=== PATIENT | female | born 1950 | race Caucasian/White ===

== ENCOUNTER → 2018-07-16 | Outpatient (CLI) | payer MEDICARE | END | disposition home or self-care (01) | LOC: SHCH 14:19 | PROVIDERS: ATTEND Internal Medicine Cardiovascular Disease | DX: I20.9 Angina pectoris, unspecified (principal) | CPT/HCPCS: 93306 ==

== ENCOUNTER → 2018-07-20 | Outpatient (CLI) | payer MEDICARE ==
[~2018-07-20] VITALS: Ht 157.5 cm; Wt 79.4 kg
[~2018-07-20] MED LIST: REGADENOSON 0.4 MG/5 ML PF SYG IVP SCH
== END | disposition home or self-care (01) ==
LOC: SHCH 08:18 → EDUNIT# 08:30
PROVIDERS: ATTEND Internal Medicine Cardiovascular Disease
DX: I20.9 Angina pectoris, unspecified (principal)
CPT/HCPCS: 78452; 93017; 96374; A9500 ×2; J2785 ×2

== ENCOUNTER 2019-04-04 06:00 | Day surgery (SDC) | payer MEDICARE ==
[2019-04-02 09:48] VITALS: BP 145/67
[2019-04-02 10:33] LABS: HEMATOCRIT 39.7 % (36-48); LYMPHOCYTES % (AUTO) 29.3 % (21.0-51.0); MEAN CORPUSCULAR HEMOGLOBIN 28.8 pg (27.0-33.0); MEAN CORPUSCULAR HGB CONC 31.7 g/dL (32.0-36.0); MEAN CORPUSCULAR VOLUME 90.6 fL (79-99); NEUTROPHILS % (AUTO) 63.4 % (40.0-77.0); PLATELET COUNT (AUTO) 285 K/uL (130-400); RED BLOOD CELL COUNT(AUTO) 4.38 MIL/uL (4.00-5.50); WHITE BLOOD COUNT (AUTO) 6.1 K/uL (4.8-10.8)
[2019-04-02 10:42] LABS: CREATININE 0.8 mg/dL (0.5-1.5)
[2019-04-02 10:43] LABS: APPEARANCE,URINE Clear (CLEAR); BILIRUBIN,URINE Negative (NEGATIVE); COLOR,URINE Yellow (YELLOW); GLUCOSE, URINE (UA) Negative (NEGATIVE); KETONES,URINE Negative (NEGATIVE); LEUKOCYTE ESTERASE ,URINE Negative (NEGATIVE); NITRATE,URINE Negative (NEGATIVE); OCCULT BLOOD,URINE Negative (NEGATIVE); PROTEIN,URINE Negative (NEGATIVE); UROBILINOGEN,URINE 0.2 mg/dL (0.2-1.0)
[2019-04-02 10:47] LABS: INR 0.89 (0.85-1.15); PARTIAL THROMBOPLASTIN TIME 24.5 SEC (26.3-35.5); PROTHROMBIN TIME 9.4 SEC (9.6-11.6)
[2019-04-04] VITALS (10 sets, daily range): BP systolic 141–156; BP diastolic 62–84
[~2019-04-04] VITALS: Ht 160 cm; Wt 76.1 kg
[~2019-04-04 06:00] MED LIST changes: +ATOR20TA65 PO; +CBD OIL SL; +CHOL200026 PO; +DOCU-116 PO; +FLUTICASONE NASAL; +MELA3TAB66 PO; +NITR0.4T50 SL; +PREN-154 PO; -REGADENOSON 0.4 MG/5 ML PF SYG IVP SCH; +SERT100T12 PO; +SODIUM CHLORIDE 0.9% 500ML 500 ML IV SCH; +TROS60CA4 PO; +TURM500C9 PO; +[UNRECOGNIZED DRUG - OTHER] PO; +[UNRECOGNIZED DRUG - OTHER] PO; +[UNRECOGNIZED DRUG - OTHER] PUFF; +[UNRECOGNIZED DRUG - OTHER] PUFF; +super b complex PO
--- NOTE | 2019-04-04 06:15 | NUR ---
PRE-PROCEDURE RECEIVED TO DAY 14 VIA AMBULATING FOR SCHEDULED LHC. AWAKE IN NO ACUTE DISTRESS. PER PT HAS INTERMITTENT CHEST PAIN 3-5/10 ON/OFF THROUGHOUT DAY THAT IMPROVES WITH DEEP BREATHING. DENIES SOA. CONNECTED TO CONTINUOUS CARDIOPULMONARY MONITORING. SIDE RAILS UP X2, BED IN LOWEST POSITION, AND CALL LIGHT W/IN REACH.
[2019-04-04] MEDS ORDERED: METHYLPREDNISOLONE SOD SUCC 125MG/2ML VIAL ONE ×2 (06:20→07:47)
[2019-04-04] MEDS ORDERED: SODIUM CHLORIDE 0.9% 1000ML 1,000 ML IV ONE (06:20)
--- NOTE | 2019-04-04 07:20 | NUR ---
PROCEDURE TRANSFERRED TO HOST AND HOSTESS VIA BED BY CARIE PARRA RN. AWAKE IN NO ACUTE DISTRESS.
[2019-04-04] MEDS ORDERED: HEPARIN SODIUM 1000UNIT/ML 10ML VIAL ONE (07:26)
[2019-04-04] MEDS ORDERED: IOHEXOL-350 50ML VIAL IV ONE (07:27)
[2019-04-04] MEDS ORDERED: LIDOCAINE HCL 2% 20ML ONE (07:27)
[2019-04-04] MEDS ORDERED: MIDAZOLAM HCL 1 MG/ML 2ML VIAL ONE (07:27)
[2019-04-04] MEDS ORDERED: NITROGLYCERIN 5 MG/ML 10 ML VIAL IV ONE (07:27)
[2019-04-04] MEDS ORDERED: FENTANYL CITRATE PF 50 MCG/1 ML 2ML VIAL ONE (07:27)
[2019-04-04] MEDS ORDERED: IOHEXOL 350 MG/ML 100ML INFUS..BTL IV ONE (07:27)
[2019-04-04] MEDS ORDERED: BIVALIRUDIN 250 MG/VIAL IV ONE (07:38)
[2019-04-04] MEDS ORDERED: SODIUM CHLORIDE 0.9% 1000ML 1,000 ML IV SCH (08:12)
[2019-04-04] MEDS ORDERED: NITROGLYCERIN 0.4 MG SL TAB SL PRN (08:15)
[2019-04-04] MEDS ORDERED: GLUCAGON 1MG KIT 1 MG ML IM PRN (08:15)
[2019-04-04] MEDS ORDERED: DEXTROSE 50%-WATER 50 ML DISP.SYRIN IV PRN (08:15)
[2019-04-04] MEDS ORDERED: METOPROLOL TARTRATE 1 MG/ML 5ML VIAL IV PRN (08:15)
[2019-04-04] MEDS ORDERED: HYDRALAZINE HCL 20 MG/ML VIAL IV PRN (08:15)
[2019-04-04] MEDS ORDERED: ACETAMINOPHEN-CODEINE 300/30MG TAB PO PRN (08:15)
--- NOTE | 2019-04-04 08:42 | NUR ---
POST-PROCEDURE RECEIVED FROM PLUMBING INSTALLER VIA BED S/P [facility]. AWAKE IN ACUTE DISTRESS. CONNECTED TO CONTINUOUS CARDIOPULMONARY MONITORING. RIGHT FEMORAL CATH SITE WITH MYNX CLEAN, DRY, AND INTACT; SITE SOFT, NON-TENDER. EDUCATED PT TO KEEP RIGHT LEG STRAIGHT AND HEAD FLAT X2 HOURS. PT VERBALIZED UNDERSTANDING. SIDE RAILS UP X2, BED IN LOWEST POSITION, AND CALL LIGHT W/IN REACH.
--- NOTE | 2019-04-04 09:18 | NUR ---
ACTIVITY HOB ELEVATE TO 20 DEGREES. RIGHT FEMORAL CATH SITE W/ MYNX CD&I, SITE SOFT, NON-TENDER.
--- NOTE | 2019-04-04 10:45 | NUR ---
ACTIVITY UP TO RR WITH MINIMAL ASSIST OF 1. GAIT STEADY. CATH SITE TO RIGHT FEMORAL WITH MYNX CD&I; SITE SOFT, NON-TENDER.
--- NOTE | 2019-04-04 11:30 | NUR ---
DIET ATE 50% OF LUNCH.
--- NOTE | 2019-04-04 13:10 | NUR ---
DISCHARGE EDUCATION DAY PT DISCHARGE INSTRUCTION SHEET, MED REC, AND PT SUMMARY REVIEWED WITH PT AND PTS FRIEND (PER PTS REQUEST). EDUCATED IF PUNCTURE SITE STARTS BLEEDING, APPLY DIRECT PRESSURE OVER THE AREA AND RETURN TO ER. PT VERBALIZED UNDERSTANDING. OPPORTUNITY GIVEN TO ASK QUESTIONS. QUESTIONS ADDRESSED.
--- NOTE | 2019-04-04 13:25 | NUR ---
DISCHARGE DISCHARGED VIA W/C. AWAKE IN NO ACUTE DISTRESS.
== END 2019-04-04 13:25 | disposition home or self-care (01) ==
LOC: DAH 06:00
PROVIDERS: ATTEND Internal Medicine Cardiovascular Disease
DX: I25.110 Atherosclerotic heart disease of native coronary artery with unstable angina pectoris (principal); I10 Essential (primary) hypertension; J45.909 Unspecified asthma, uncomplicated; K21.9 Gastro-esophageal reflux disease without esophagitis; F32.9 Major depressive disorder, single episode, unspecified; F17.210 Nicotine dependence, cigarettes, uncomplicated; E78.2 Mixed hyperlipidemia; M19.90 Unspecified osteoarthritis, unspecified site; Z98.890 Other specified postprocedural states; Z90.710 Acquired absence of both cervix and uterus; Z79.01 Long term (current) use of anticoagulants; Z90.49 Acquired absence of other specified parts of digestive tract; Z88.0 Allergy status to penicillin
CPT/HCPCS: 36415; 71045; 80048; 81003; 85025; 85610; 85730; 93005; 93458; A4215; A4216; A4221; A4222; A4223 ×3; A4606; A4663; C1760; C1894 ×3; J1644; J2250; J2930 ×2; J3010; J3490 ×2; J7030; Q9965; Q9967 ×2; 99156; 99157; J0583

== ENCOUNTER 2021-03-08 20:10 | Observation (INO) | payer MEDICARE ==
[~2021-03-08] VITALS: Ht 157.5 cm; Wt 70.2 kg
[~2021-03-08 20:10] MED LIST changes: +MELA3TAB41 PO; -MELA3TAB66 PO; +SERT-440 PO; -SERT100T12 PO; -SODIUM CHLORIDE 0.9% 500ML 500 ML IV SCH
[2021-03-08] MEDS ORDERED: ASPIRIN 325MG TAB PO ONE (20:30)
[2021-03-08] MEDS ORDERED: NITROGLYCERIN 1GM OINT 1 INCH/1GM TD ONE (20:30)
[2021-03-08 20:34] LABS: BASOPHILS % (AUTO) 0.1 % (0.0-5.0); EOSINOPHILS % (AUTO) 2.1 % (0.0-8.0); HEMATOCRIT 38.3 % (36-48); LYMPHOCYTES % (AUTO) 34.6 % (21.0-51.0); MEAN CORPUSCULAR HEMOGLOBIN 29.1 pg (27.0-33.0); MEAN CORPUSCULAR HGB CONC 33.2 g/dL (32.0-36.0); MEAN CORPUSCULAR VOLUME 87.8 fL (79-99); MONOCYTES % (AUTO) 8.1 % (3.0-13.0); NEUTROPHILS % (AUTO) 54.8 % (40.0-77.0); PLATELET COUNT (AUTO) 274 K/uL (130-400); RED BLOOD CELL COUNT(AUTO) 4.36 MIL/uL (4.00-5.50); RED CELL DISTRIBUTION WIDTH 14.5 % (11.0-15.5)
[2021-03-08 20:54] LABS: CREATININE 0.9 mg/dL (0.5-1.5); POTASSIUM 3.5 mmol/L (3.5-5.1)
[2021-03-08 21:03] LABS: ALBUMIN 3.7 g/dL (3.5-5.0); BILIRUBIN,TOTAL 0.4 mg/dL (0.2-1.0); TOTAL PROTEIN, SERUM 7.1 g/dL (6.0-8.3)
[2021-03-08] MEDS ORDERED: NITROGLYCERIN 0.4 MG SL TAB SL PRN (22:30)
[2021-03-08] MEDS ORDERED: ACETAMINOPHEN 325 MG TAB PO PRN ×2 (22:30)
[2021-03-08] MEDS ORDERED: ONDANSETRON 4MG INJ IV PRN (22:30)
[2021-03-09 00:05] LABS: APPEARANCE,URINE Clear (CLEAR); BILIRUBIN,URINE Negative (NEGATIVE); GLUCOSE, URINE (UA) Negative (NEGATIVE); KETONES,URINE Negative (NEGATIVE); LEUKOCYTE ESTERASE ,URINE Trace (NEGATIVE); NITRATE,URINE Negative (NEGATIVE); OCCULT BLOOD,URINE Negative (NEGATIVE); PROTEIN,URINE Negative (NEGATIVE); UROBILINOGEN,URINE 0.2 mg/dL (0.2-1.0)
[2021-03-09 00:08] LABS: COLOR,URINE YELLOW (YELLOW)
[2021-03-09 00:25] LABS: BACTERIA,URINE Rare /HPF (None Seen); RBC,URINE None Seen /HPF (0-1); WBC,URINE 0-1 /HPF (0-1)
[2021-03-09 00:58] LABS: AMPHET/METH SCREEN,URINE NEGATIVE (NEGATIVE); BARBITURATE SCREEN, URINE NEGATIVE (NEGATIVE); BENZODIAZEPINES SCREEN,URINE NEGATIVE (NEGATIVE); CANNABINOID SCREEN,URINE POSITIVE (NEGATIVE); COCAINE SCREEN,URINE NEGATIVE (NEGATIVE); OPIATE SCREEN,URINE NEGATIVE (NEGATIVE); PHENCYCLIDINE SCREEN,URINE NEGATIVE (NEGATIVE)
[2021-03-09] MEDS ORDERED: IPRATROPIUM/ALBUTEROL SULFATE 3 ML SOLUTION IH PRN (02:00)
[2021-03-09 04:34] LABS: HEMATOCRIT 36.5 % (36-48); LYMPHOCYTES % (AUTO) 44.2 % (21.0-51.0); MEAN CORPUSCULAR HEMOGLOBIN 29.6 pg (27.0-33.0); MEAN CORPUSCULAR HGB CONC 33.2 g/dL (32.0-36.0); MEAN CORPUSCULAR VOLUME 89.2 fL (79-99); MONOCYTES % (AUTO) 8.6 % (3.0-13.0); NEUTROPHILS % (AUTO) 46.8 % (40.0-77.0); PLATELET COUNT (AUTO) 221 K/uL (130-400); RED BLOOD CELL COUNT(AUTO) 4.09 MIL/uL (4.00-5.50); RED CELL DISTRIBUTION WIDTH 14.6 % (11.0-15.5); WHITE BLOOD COUNT (AUTO) 5.3 K/uL (4.8-10.8)
[2021-03-09 04:35] VITALS: BP 145/69
[2021-03-09 05:10] LABS: ALBUMIN 3.3 g/dL (3.5-5.0); BILIRUBIN,TOTAL 0.4 mg/dL (0.2-1.0); CREATININE 0.8 mg/dL (0.5-1.5); MAGNESIUM 2.1 mg/dL (1.80-2.40); POTASSIUM 3.5 mmol/L (3.5-5.1); TOTAL PROTEIN, SERUM 6.4 g/dL (6.0-8.3)
[2021-03-09 08:00] VITALS: BP 128/75
[2021-03-09] MEDS ORDERED: FAMOTIDINE 20MG TAB PO SCH (09:00)
[2021-03-09] MEDS ORDERED: ENOXAPARIN SODIUM 30 MG/0.3 ML SQ SCH (09:00)
[2021-03-09] MEDS ORDERED: METOPROLOL TARTRATE 25 MG TAB PO SCH (09:00)
[2021-03-09] MEDS ORDERED: ATOR20TA65 PO (11:09)
[2021-03-09] MEDS ORDERED: GABA300S PO (11:09)
[2021-03-09] MEDS ORDERED: ISOS30TA92 PO (11:09)
[2021-03-09 12:00] VITALS: BP 124/65
== END 2021-03-09 16:45 | disposition home or self-care (01) ==
LOC: EDH 20:10 → EDHIP 22:19 → 3DH 03-09 03:44
PROVIDERS: ADMIT Internal Medicine; ATTEND Internal Medicine
DX: R07.89 Other chest pain (principal); Z20.822 Contact with and (suspected) exposure to COVID-19; I25.118 Atherosclerotic heart disease of native coronary artery with other forms of angina pectoris; E78.5 Hyperlipidemia, unspecified; K21.9 Gastro-esophageal reflux disease without esophagitis; J45.909 Unspecified asthma, uncomplicated; E78.00 Pure hypercholesterolemia, unspecified; I10 Essential (primary) hypertension; E66.9 Obesity, unspecified; M19.90 Unspecified osteoarthritis, unspecified site; F32.9 Major depressive disorder, single episode, unspecified; F12.90 Cannabis use, unspecified, uncomplicated; Z88.0 Allergy status to penicillin; Z79.899 Other long term (current) drug therapy; Z90.711 Acquired absence of uterus with remaining cervical stump; Z68.28 Body mass index [BMI] 28.0-28.9, adult
CPT/HCPCS: 36415 ×2; 71045; 80053 ×2; 80061; 80305; 81001; 82550 ×3; 83735 ×2; 83874 ×3; 83880; 84484 ×4; 85025 ×2; 86140; 87635; 93005 ×2; 96372; 99283; G0378 ×19; J1650

== ENCOUNTER 2021-04-27 15:37 | Observation (INO) | payer MEDICARE ==
[~2021-04-27] VITALS: Ht 157.5 cm; Wt 73.8 kg
[~2021-04-27 15:37] MED LIST changes: -CBD OIL SL; -CHOL200026 PO; +GABA300S PO; +ISOS30TA92 PO; -MELA3TAB41 PO; -NITR0.4T50 SL; -PREN-154 PO; -TROS60CA4 PO; -TURM500C9 PO; -[UNRECOGNIZED DRUG - OTHER] PO; -[UNRECOGNIZED DRUG - OTHER] PO; -super b complex PO
[2021-04-27 17:09] LABS: HEMATOCRIT 42.3 % (36-48); MEAN CORPUSCULAR HEMOGLOBIN 29.1 pg (27.0-33.0); MEAN CORPUSCULAR HGB CONC 32.6 g/dL (32.0-36.0); MEAN CORPUSCULAR VOLUME 89.2 fL (79-99); RED BLOOD CELL COUNT(AUTO) 4.74 MIL/uL (4.00-5.50); RED CELL DISTRIBUTION WIDTH 13.5 % (11.0-15.5); WHITE BLOOD COUNT (AUTO) 7.1 K/uL (4.8-10.8)
[2021-04-27 17:22] LABS: CREATININE 0.8 mg/dL (0.5-1.5)
[2021-04-27 17:34] LABS: BILIRUBIN,TOTAL 0.6 mg/dL (0.2-1.0); TOTAL PROTEIN, SERUM 7.1 g/dL (6.0-8.3)
[2021-04-27 20:48] LABS: APPEARANCE,URINE Clear (CLEAR); BILIRUBIN,URINE Negative (NEGATIVE); COLOR,URINE Yellow (YELLOW); GLUCOSE, URINE (UA) Negative (NEGATIVE); KETONES,URINE 15 mg/dL (NEGATIVE); LEUKOCYTE ESTERASE ,URINE Moderate (NEGATIVE); NITRATE,URINE Positive (NEGATIVE); OCCULT BLOOD,URINE Negative (NEGATIVE); PROTEIN,URINE Negative (NEGATIVE)
[2021-04-27 20:59] LABS: BACTERIA,URINE Moderate /HPF (None Seen); RBC,URINE None Seen /HPF (0-1); SQUAMOUS EPITHELIAL CELL,UR 0-2 /HPF (0-2)
[2021-04-27] MEDS ORDERED: ACETAMINOPHEN 325 MG TAB PO PRN ×2 (21:30)
[2021-04-27] MEDS ORDERED: ASPIRIN 81MG CHEW TAB PO ONE (21:30)
[2021-04-27] MEDS ORDERED: NITROGLYCERIN 0.4 MG SL TAB SL PRN (21:30)
[2021-04-27] MEDS ORDERED: CEFTRIAXONE 1G VIAL IVP ONE (21:30)
[2021-04-27] MEDS: LEVOFLOXACIN 750 MG/D5W 150 ML 150 ML IV SCH (21:59)
[2021-04-27] MEDS: LACTATED RINGERS 1000ML 1,000 ML IV SCH (21:59)
[2021-04-27] MEDS ORDERED: ZOSYN 3.375GM +NS 50ML IV SCH (22:00)
[2021-04-27] MEDS ORDERED: 0.9%NACL 50ML 50 ML IV SCH (22:00)
[2021-04-27 22:45] VITALS: BP 144/67
[2021-04-27 22:48] VITALS: BP 140/62
[2021-04-27 22:51] VITALS: BP 166/52
[2021-04-28] VITALS (9 sets, daily range): BP systolic 126–156; BP diastolic 64–89
[2021-04-28] MEDS ORDERED: ALBUTEROL INHALER 90MCG/INH IH PRN
[2021-04-28 05:32] LABS: HEMATOCRIT 39.3 % (36-48); LYMPHOCYTES % (AUTO) 39.3 % (21.0-51.0); MEAN CORPUSCULAR HEMOGLOBIN 28.5 pg (27.0-33.0); MEAN CORPUSCULAR HGB CONC 31.8 g/dL (32.0-36.0); MEAN CORPUSCULAR VOLUME 89.7 fL (79-99); MONOCYTES % (AUTO) 9.4 % (3.0-13.0); NEUTROPHILS % (AUTO) 50.9 % (40.0-77.0); PLATELET COUNT (AUTO) 253 K/uL (130-400); RED BLOOD CELL COUNT(AUTO) 4.38 MIL/uL (4.00-5.50); RED CELL DISTRIBUTION WIDTH 13.5 % (11.0-15.5); WHITE BLOOD COUNT (AUTO) 5.2 K/uL (4.8-10.8)
[2021-04-28 05:57] LABS: CREATININE 0.9 mg/dL (0.5-1.5); MAGNESIUM 1.8 mg/dL (1.80-2.40); PHOSPHORUS 4.3 mg/dL (2.5-4.9); POTASSIUM 3.8 mmol/L (3.5-5.1)
[2021-04-28] MEDS: LACTATED RINGERS 1000ML 1,000 ML IV SCH ×2 (06:39→23:54)
[2021-04-28] MEDS ORDERED: LEVOFLOXACIN 750 MG/D5W 150 ML 150 ML IV SCH (09:00)
[2021-04-28] MEDS: FAMOTIDINE 20MG TAB PO SCH ×2 (09:06→19:45)
[2021-04-28] MEDS: ASPIRIN 81MG CHEW TAB PO SCH (09:06)
[2021-04-28] MEDS: ENOXAPARIN SODIUM 40 MG/0.4 ML SYRINGE SQ SCH (09:07)
[2021-04-28] MEDS ORDERED: MAGNESIUM 2GM PREMIX 50ML 50 ML IV PRN (18:30)
[2021-04-28] MEDS ORDERED: ISOS30TA92 PO (19:43)
[2021-04-28] MEDS ORDERED: GABA600T PO (19:43)
[2021-04-28] MEDS ORDERED: TROS60CA4 PO (19:43)
[2021-04-28] MEDS ORDERED: BUPROPION PO (19:43)
[2021-04-28] MEDS: LEVOFLOXACIN 750 MG/D5W 150 ML 150 ML IV SCH (19:44)
[2021-04-28] MEDS ORDERED: NITR0.3T SL (19:54)
[2021-04-28] MEDS ORDERED: LACTATED RINGERS 1000ML 1,000 ML IV ONE (23:53)
[2021-04-29] VITALS: BP 127/70
[2021-04-29 04:00] VITALS: BP 130/69
[2021-04-29 05:17] LABS: EOSINOPHILS % (AUTO) 2.2 % (0.0-8.0); HEMATOCRIT 42.1 % (36-48); LYMPHOCYTES % (AUTO) 33.3 % (21.0-51.0); MEAN CORPUSCULAR HEMOGLOBIN 28.8 pg (27.0-33.0); MEAN CORPUSCULAR HGB CONC 32.1 g/dL (32.0-36.0); MONOCYTES % (AUTO) 11.2 % (3.0-13.0); NEUTROPHILS % (AUTO) 52.8 % (40.0-77.0); PLATELET COUNT (AUTO) 256 K/uL (130-400); RED BLOOD CELL COUNT(AUTO) 4.68 MIL/uL (4.00-5.50); RED CELL DISTRIBUTION WIDTH 13.6 % (11.0-15.5); WHITE BLOOD COUNT (AUTO) 5.8 K/uL (4.8-10.8)
[2021-04-29 05:26] LABS: CREATININE 1.1 mg/dL (0.5-1.5); MAGNESIUM 2.5 mg/dL (1.80-2.40); POTASSIUM 4.2 mmol/L (3.5-5.1)
[2021-04-29 07:51] VITALS: BP 125/53
[2021-04-29] MEDS: ASPIRIN 81MG CHEW TAB PO SCH (09:31)
[2021-04-29] MEDS: FAMOTIDINE 20MG TAB PO SCH (09:31)
[2021-04-29] MEDS: ENOXAPARIN SODIUM 40 MG/0.4 ML SYRINGE SQ SCH (09:32)
[2021-04-29 12:00] VITALS: BP 114/59
[2021-04-29 12:05] VITALS: BP 139/68
[2021-04-29 12:10] VITALS: BP 131/83
[2021-04-29] MEDS ORDERED: NITR50CA PO (13:07)
== END 2021-04-29 16:30 | disposition home or self-care (01) ==
LOC: EDH 15:37 → EDHIP 21:12 → 3CH 22:17
PROVIDERS: ADMIT Hospitalist; ATTEND Hospitalist
DX: N39.0 Urinary tract infection, site not specified (principal); Z20.822 Contact with and (suspected) exposure to COVID-19; R55 Syncope and collapse; I10 Essential (primary) hypertension; E78.5 Hyperlipidemia, unspecified; J45.909 Unspecified asthma, uncomplicated; G89.29 Other chronic pain; M54.9 Dorsalgia, unspecified; K21.9 Gastro-esophageal reflux disease without esophagitis; F32.A Depression, unspecified; F12.90 Cannabis use, unspecified, uncomplicated; E78.00 Pure hypercholesterolemia, unspecified; R53.81 Other malaise; F39 Unspecified mood [affective] disorder; Z88.0 Allergy status to penicillin; Z90.711 Acquired absence of uterus with remaining cervical stump; Z90.49 Acquired absence of other specified parts of digestive tract; Z79.899 Other long term (current) drug therapy
CPT/HCPCS: 36415 ×3; 71045; 80048 ×2; 80053; 81001; 82550 ×2; 83735 ×2; 83874; 83880; 84100; 84484 ×5; 85025 ×2; 85027; 87077; 87088; 87186; 87635; 93005; 96361 ×2; 96365; 96366; 96368; 96372 ×2; 99285; G0378 ×43; J1650 ×2; J1956 ×2; J2543; J3475; J7120 ×2

== ENCOUNTER 2022-06-18 21:04 | Emergency (ER) | payer MEDICARE ==
[~2022-06-18] VITALS: Ht 157.5 cm; Wt 74.8 kg
[~2022-06-18 21:04] MED LIST changes: +BUPROPION PO; -GABA300S PO; +GABA600T PO; +NITR0.3T SL; +NITR50CA PO; -SERT-440 PO; +TROS60CA4 PO
[2022-06-18 21:32] LABS: BASOPHILS % (AUTO) 0.1 % (0.0-5.0); HEMATOCRIT 36.3 % (36-48); MEAN CORPUSCULAR HEMOGLOBIN 30.1 pg (27.0-33.0); MEAN CORPUSCULAR HGB CONC 33.3 g/dL (32.0-36.0); MEAN CORPUSCULAR VOLUME 90.3 fL (79-99); NEUTROPHILS % (AUTO) 74.5 % (40.0-77.0); PLATELET COUNT (AUTO) 266 K/uL (130-400); RED BLOOD CELL COUNT(AUTO) 4.02 MIL/uL (4.00-5.50); RED CELL DISTRIBUTION WIDTH 14.5 % (11.0-15.5)
[2022-06-18 21:46] LABS: CARBON DIOXIDE 22 mmol/L (21-32); CHLORIDE 105 mmol/L (101-111); CREATININE 0.8 mg/dL (0.5-1.5); GLOMERULAR FILTR. RATE CALC 75 mL/min (>60); GLUCOSE,RANDOM 110 mg/dL (70-105); POTASSIUM 3.9 mmol/L (3.5-5.1); SODIUM SERUM 136 mmol/L (136-145); UREA NITROGEN, BLOOD 17 mg/dL (7-18)
[2022-06-18 21:51] LABS: ALANINE AMINOTRANSFERASE 16 U/L (12-78); ALBUMIN 3.3 g/dL (3.5-5.0); ASPARTATE AMINOTRANSFERASE 22 U/L (10-37); TOTAL PROTEIN, SERUM 6.5 g/dL (6.0-8.3)
[2022-06-18 21:52] LABS: LIPASE < 50 U/L (114-286)
[2022-06-18] MEDS ORDERED: MECLIZINE HCL 25 MG TABLET PO ONE (23:00)
[2022-06-18] MEDS ORDERED: ONDANSETRON 4MG INJ IVP ONE (23:00)
[2022-06-19] MEDS ORDERED: DiphenhydrAMINE HCL 50 MG/ML VIAL ONE (03:25)
[2022-06-19 06:45] VITALS: BP 104/70
== END 2022-06-19 06:53 | disposition home or self-care (01) ==
LOC: EDH 21:04
DX: I25.10 Atherosclerotic heart disease of native coronary artery without angina pectoris (principal); I63.9 Cerebral infarction, unspecified; R42 Dizziness and giddiness; J45.909 Unspecified asthma, uncomplicated; E78.00 Pure hypercholesterolemia, unspecified; Z88.8 Allergy status to other drugs, medicaments and biological substances; Z79.899 Other long term (current) drug therapy; Z88.0 Allergy status to penicillin; Z90.89 Acquired absence of other organs; Z90.710 Acquired absence of both cervix and uterus; Z90.49 Acquired absence of other specified parts of digestive tract
CPT/HCPCS: 99285; 96374; 80053; 83690; 85025; 36415; 93005; 70551; 70547; 70544; J2405; J1200

== ENCOUNTER → 2023-02-28 | Outpatient (CLI) | payer MEDICARE | END | disposition home or self-care (01) | LOC: SHCH 08:17 | PROVIDERS: ATTEND Internal Medicine Cardiovascular Disease | DX: I87.2 Venous insufficiency (chronic) (peripheral) (principal); I87.1 Compression of vein | CPT/HCPCS: 93970 ==

== ENCOUNTER 2023-03-16 15:48 | Emergency (ER) | payer MEDICARE ==
[~2023-03-16] VITALS: Ht 154.9 cm; Wt 73.5 kg
[2023-03-16 15:53] VITALS: BP 117/68; PULSE 88; RESP 17
[2023-03-16] MEDS ORDERED: CLINDAMYCIN 150 MG CAP PO ONE (16:30)
[2023-03-16] MEDS ORDERED: CLIN-141 PO (16:30)
[2023-03-16] MEDS ORDERED: IBUP-2077 PO (16:30)
[2023-03-16] MEDS ORDERED: ACETAMINOPHEN 500 MG TABLET PO ONE (16:30)
[2023-03-16] MEDS ORDERED: TETANUS/DIPHTHERIA TOXOID [ADULT] 0.5 ML VIAL IM ONE (16:30)
== END 2023-03-16 16:53 | disposition home or self-care (01) ==
LOC: EDH 15:48
DX: S51.831A Puncture wound without foreign body of right forearm, initial encounter (principal); J45.909 Unspecified asthma, uncomplicated; E78.00 Pure hypercholesterolemia, unspecified; I10 Essential (primary) hypertension; Z90.49 Acquired absence of other specified parts of digestive tract; W54.0XXA Bitten by dog, initial encounter; Y93.89 Activity, other specified; Y92.89 Other specified places as the place of occurrence of the external cause; Y99.8 Other external cause status
CPT/HCPCS: 90471; 90714

== ENCOUNTER → 2023-03-23 | Outpatient (CLI) | payer MEDICARE ==
[~2023-03-23] MED LIST changes: +CLIN-141 PO; +IBUP-2077 PO
== END | disposition home or self-care (01) ==
LOC: SHCH 13:49
PROVIDERS: ATTEND Internal Medicine Cardiovascular Disease
DX: I73.9 Peripheral vascular disease, unspecified (principal)
CPT/HCPCS: 93925

== ENCOUNTER → 2023-05-29 | Outpatient (CLI) | payer MEDICARE | END | disposition home or self-care (01) | LOC: RAH 12:24 | PROVIDERS: ATTEND Physical Medicine & Rehabilitation | DX: S33.140A Subluxation of L4/L5 lumbar vertebra, initial encounter (principal); M47.817 Spondylosis without myelopathy or radiculopathy, lumbosacral region; M48.02 Spinal stenosis, cervical region; M47.812 Spondylosis without myelopathy or radiculopathy, cervical region; X58.XXXA Exposure to other specified factors, initial encounter; Y93.89 Activity, other specified; Y92.89 Other specified places as the place of occurrence of the external cause; Y99.8 Other external cause status | CPT/HCPCS: 72050; 72114 ==

== ENCOUNTER → 2023-06-20 | Outpatient (CLI) | payer MEDICARE | END | disposition home or self-care (01) | LOC: RAH 11:00 | PROVIDERS: ATTEND Physical Medicine & Rehabilitation | DX: M47.12 Other spondylosis with myelopathy, cervical region (principal); M48.02 Spinal stenosis, cervical region | CPT/HCPCS: 72141 ==

== ENCOUNTER → 2024-05-06 | Outpatient (CLI) | payer MEDICARE | END | disposition home or self-care (01) | LOC: SHCH 12:48 | PROVIDERS: ATTEND Internal Medicine Cardiovascular Disease | DX: I87.2 Venous insufficiency (chronic) (peripheral) (principal); I87.1 Compression of vein | CPT/HCPCS: 93970 ==

== ENCOUNTER → 2024-05-08 | Outpatient (CLI) | payer MEDICARE | END | disposition home or self-care (01) | LOC: SHCH 13:07 | PROVIDERS: ATTEND Internal Medicine Cardiovascular Disease | DX: R07.9 Chest pain, unspecified (principal); R06.09 Other forms of dyspnea | CPT/HCPCS: 93306; 93356 ==

== ENCOUNTER 2025-04-11 12:17 | Emergency (ER) | payer MEDICARE ==
[~2025-04-11] VITALS: Ht 152.4 cm; Wt 68.0 kg
--- NOTE | 2025-04-11 12:28 | ERN ---
ED Note History of Present Illness Stated Complaint: RT LEG PAIN Chief Complaint: Lower Extremity Pain/Injury Time Seen by MD: 12:21 Dictation: PATIENT IS A 74-YEAR-OLD FEMALE COMING IN TODAY WITH PAIN TO THE RIGHT THIGH AND CALF SWELLING SHE HAS HAD FOR 2-3 DAYS. NO FEVER NO CHILLS NO NAUSEA VOMITING. NO SOB. SHE STATES SHE IS CONCERNED THAT SHE MAY HAVE A DEEP VEIN THROMBOSIS. SAID SHE HAD JUST SEEN HER PRIMARY CARE DOCTOR YESTERDAY WHO THOUGHT IT WAS FINE BUT IF IT ANY CHANGES TO GO TO THE EMERGENCY ROOM. DISTAL NEUROVASCULAR CMS INTACT RIGHT LEG. SHE DOES STATE SHE HAS CHRONIC KNEE PAIN SECONDARY TO OSTEOARTHRITIS FROM BEING A SCALE YOUR YEARS AGO. Allergies: Coded Allergies: Iodine and Iodide Containing Produc (Unverified Allergy, Severe, RASH, 07/19/18) Penicillins (Unverified Allergy, Severe, RASH, 07/19/18) Home Meds Active Scripts Ibuprofen (Ibuprofen 800 mg Tab) 800 Mg Tab, 800 MG PO Q8H PRN for fever or pain, #30 TAB 0 Refills Prov:[facility] 03/16/23 Clindamycin HCl (Clindamycin HCl) 300 Mg Capsule, 1 CAP PO QID for 7 Days, #28 CAP 0 Refills Prov:[facility] 03/16/23 Nitrofurantoin Macrocrystal (Nitrofurantoin) 50 Mg Capsule, 50 MG PO BID for 7 D ays, #14 CAP 0 Refills Prov:JOSE JONES MARINE ENGINEERING PROFESSOR 04/29/21 Reported Medications Nitroglycerin (Nitrostat) 0.3 Mg Tab.subl, 0.3 MG SL DAILY, TAB.SL 04/28/21 Gabapentin (Neurontin) 600 Mg Tablet, 300 MG PO BID, TAB 04/28/21 [Bupropion] No Conflict Check, PO BID 04/28/21 Trospium Chloride (Trospium Chloride) 60 Mg Cap.er.24h, 60 MG PO DAILY, CAPSULE. 04/28/21 Atorvastatin Calcium (Atorvastatin Calcium) 20 Mg Tablet, 20 MG PO DAILY, TAB 03/09/21 Isosorbide Mononitrate (Isosorbide Mononitrate ER) 30 Mg Tab.er.24h, 30 MG PO DAILY, TAB 1/2 TAB DAILY 03/09/21 [Fluticasone] No Conflict Check, 50 MCG NASAL DAILY 04/02/19 [Revare] No Conflict Check, PUFF DAILY 04/02/19 [Salbutamamol ] No Conflict Check, PUFF AD 04/02/19 Docusate Sodium (Colace) 100 Mg Capsule, 100 MG PO DAILY PRN for CONSTIPATION, CAP 04/02/19 Past Medical History Past Medical History: Angina, Asthma, High Cholesterol, Hypertension Surgical History: Appendectomy, Hysterectomy, Cholecystectomy Surgical History Other: L ROTATOR CUFF, ORAL SX FOR TMJ, R KNEE SCOPE, MENICUS REPAIR Social History: Lives with family, Other History: Not Applicable RN Note Reviewed/Agreed w/PFSH: Yes Review of System Dictation CONSTITUTIONAL: NEGATIVE EXCEPT FOR HPI HEAD/FACE: NEGATIVE EXCEPT FOR HPI EENT: NEGATIVE EXCEPT FOR HPI RESPIRATORY: NEGATIVE EXCEPT FOR HPI GASTROINTESTINAL/ABDOMINAL: NEGATIVE EXCEPT FOR HPI GENITOURINARY: NEGATIVE EXCEPT FOR HPI MUSCULOSKELETAL: NEGATIVE EXCEPT FOR HPI RIGHT THIGH AND CALF SWELLING PAIN INTEGUMENTARY: NEGATIVE EXCEPT FOR HPI NEUROLOGICAL/PSYCH: NEGATIVE EXCEPT FOR HPI HEMATOLOGIC/LYMPHATIC: NEGATIVE EXCEPT FOR HPI ALL SYSTEMS NEGATIVE, EXCEPT NOTED ABOVE. 13 POINT REVIEW OF SYSTEMS ASSESSED AND ALL NEGATIVE EXCEPT FOR ABOVE. Initial Vital Sign VS Vital Signs Date Time Temp Pulse Resp B/P (MAP) Pulse Ox O2 Delivery O2 Flow Rate FiO2 04/11/25 12:20 98.4 95 18 92/44 100 Physical Exam Dictation VITAL SIGNS REVIEWED GENERAL APPEARANCE: ALERT, ORIENTED X 3, MODERATE ACUTE DISTRESS, WELL DEVELOPED, NOURISHED. HEAD AND FACE: NON-TRAUMATIC. EYES: PERRL, PINK CONJUNCTIVAS, EYELID NO TRAUMA, ANTERIOR CHAMBER WITH ARCUS SENILIS. EARS: PINNAS INTACT AND NO SIGNS OF TRAUMA OR ERYTHEMA EAR CANALS CLEAR AND NO DISCHARGE TM NO ERYTHEMA NOSE: NO DISCHARGE, NO BLEEDING. OROPHARYNX: MOUTH NORMAL, TONGUE PINK, PHARYNX CLEAR,NO ERYTHEMA, TONSILS NO EXUDATES, NO ABSCESSES NOTED, MUCOUS MEMBRANE MOIST NECK: SUPPLE, NON-TENDER, NO THYROMEGALY, NO MASSES, NO JVD, NO BRUITS BREAST:DEFERRED CHEST:NO TENDERNESS, NO CREPITUS, NO PARADOXICAL MOVEMENT, NO RETRACTIONS LUNGS:CLEAR, WELL-VENTILATED, SYMMETRIC, NO RALES, NO WHEEZING, NO RHONCHI, NO STRIDOR, GOOD BREATH SOUNDS BILATERALLY HEART: REGULAR RATE, REGULAR RHYTHM, NO MURMUR, NO GALLOPS VASCULAR: NO PERIPHERAL EDEMA, ABDOMEN: SOFT, POSITIVE BOWEL SOUNDS, NONDISTENDED, NO GUARDING, NONTENDER, NO REBOUND, NO MASSES NO HEPATOMEGALY, NO SPLENOMEGALY, NO PRINCE'S SIGN, NO HERNIAS. RECTAL: DEFERRED GENITAL: DEFERRED NEUROLOGICAL: NORMAL SPEECH, MOTOR FUNCTION INTACT, SENSORY FUNCTION INTACT MUSCULOSKELETAL: NECK NONTENDER, FULL RANGE OF MOTION, BACK NONTENDER, FULL RANGE OF MOTION, EXTREMITIES: MILD RIGHT THIGH AND CALF SWELLING TENDERNESS. ERYTHEMA. NEUROVASCULAR CMS INTACT. CHRONIC KNEE CHANGES CONSISTENT WITH OSTEOARTHRITIS SKIN: COLOR PINK, DRY, NO TURGOR, NO RASH, NO LACERATIONS, NO ABRASIONS, NO CONTUSIONS. LYMPHATIC: DEFERRED Results (Laboratory/Radiology) Laboratory/Radiology Laboratory Tests Test 04/11/25 12:36 White Blood Count 7.6 K/uL (4.8-10.8) Red Blood Count 4.36 MIL/uL (4.00-5.50) Hemoglobin 12.4 g/dL (12.0-16.0) Hematocrit 38.1 % (36-48) Mean Corpuscular Volume 87.4 fL (79-99) Mean Corpuscular Hemoglobin 28.4 pg (27.0-33.0) Mean Corpuscular Hemoglobin Concent 32.5 g/dL (32.0-36.0) Red Cell Distribution Width 15.0 % (11.0-15.5) Platelet Count 447 K/uL (130-400) H Mean Platelet Volume 8.7 fL (7.5-10.5) Immature Granulocyte % (Auto) 0.3 % (0-1) Neutrophils (%) (Auto) 66.0 % (40.0-77.0) Lymphocytes (%) (Auto) 26.8 % (21.0-51.0) Monocytes (%) (Auto) 6.8 % (3.0-13.0) Eosinophils (%) (Auto) 0.0 % (0.0-8.0) Basophils (%) (Auto) 0.1 % (0.0-5.0) Neutrophils # (Auto) 5.0 K/uL (1.8-7.7) Lymphocytes # (Auto) 2.0 K/uL (1.0-4.8) Monocytes # (Auto) 0.5 K/uL (0.1-1.0) Eosinophils # (Auto) 0.00 K/uL (0.00-0.70) Basophils # (Auto) 0.01 K/uL (0.00-0.20) Absolute Immature Granulocyte (auto 0.02 K/uL (0-1) Nucleated Red Blood Cells 0.0 % (0.0-0.19) Sodium Level 141 mmol/L (136-145) Potassium Level 3.1 mmol/L (3.5-5.1) L Chloride Level 104 mmol/L (101-111) Carbon Dioxide Level 26 mmol/L (21-32) Blood Urea Nitrogen 8 mg/dL (7-18) Creatinine 0.8 mg/dL (0.5-1.0) Glomerular Filtration Rate Calc 78 mL/min (>90) Random Glucose 117 mg/dL (70-105) H Total Calcium 9.4 mg/dL (8.5-10.1) 1450/SPOKE WITH CRYSTAL AND ULTRASOUND. SHE SAID SHE IS HAVING TROUBLE WITH THE REPORT FROM THE ULTRASOUND CROSSING OVER HOWEVER PATIENT HAS A PARTIAL DVT OF THE COMMON FEMORAL VEIN. Labs Reviewed?: Yes ED Course ED Course Orders Procedure Category Date Status Time Us Venous Doppler US 04/11/25 Logged Unilateral 12:24 Cbc With Differential LAB 04/11/25 Complete 12:24 Basic Metabolic Panel LAB 04/11/25 Complete 12:24 Acetaminophen With PHA 04/11/25 Complete Codeine (Tylenol-Code 12:30 Potassium Bicarb/Cit PHA 04/11/25 Complete Ac 25meq (K-Lyte Ta 13:30 Current Medications Medications (Trade) Dose Ordered Sig/Amy Route PRN Reason Start Time Stop Time Status Last Admin Dose Admin Acetaminophen/ Codeine Phosphate (TYLenol-coDEINE TAB) 2 tab ONCE ONCE PO 04/11/25 12:30 04/11/25 12:31 DC 04/11/25 13:39 Potassium Bicarbonate (K-Lyte Tablet Eff 25 Meq Tablet.eff) 25 meq ONCE ONCE PO 04/11/25 13:30 04/11/25 13:31 DC 04/11/25 13:37 Vital Signs Date Time Temp Pulse Resp B/P (MAP) Pulse Ox O2 Delivery O2 Flow Rate FiO2 04/11/25 12:20 98.4 95 18 92/44 100 1445/PATIENT HAS A PARTIAL DVT OF THE RIGHT COMMON FEMORAL VEIN. SHE WILL BE GIVEN ELIQUIS 10 MG TO INITIATE TREATMENT ADDITIONALLY SHE HAS A POTASSIUM OF 3.1 AND THIS WAS REPLACED SHE WILL BE DISCHARGED HOME TO FOLLOW UP WITH HER DOCTOR. Medical Decision Making MDM MDM: DIFFERENTIAL DIAGNOSIS: DVT/OCCLUSIVE/PARTIAL/MUSCULOSKELETAL PAIN/ELECTROLYTE IMBALANCE/DEHYDRATION RATIONALE: TESTS CONSIDERED AND ORDERED SECONDARY TO SHARED DECISION MAKING INCLUDE: RADIOLOGY/LABS PREVIOUS OUTSIDE RECORDS REVIEWED: OLD ER VISITS. RISK OF COMPLICATION AND/OR MORBIDITY OR MORTALITY OF PATIENT MANAGEMENT: NONE MEDICATIONS-PER MEDICATION RECONCILIATION NEED FOR HOSPITALIZATION: PATIENT DOES NOT MEET CRITERIA FOR HOSPITALIZATION. NONE NEED FOR EMERGENCY MAJOR/MINOR SURGERY: NO THERE ARE NO SOCIAL CONCERNS WITH THIS PATIENT. PRESCRIPTION DRUG MANAGEMENT ELIQUIS/TYLENOL WITH CODEINE PRESCRIPTIONS WILL INCLUDE SYMPTOMATIC CARE PATIENT'S PRIOR EXTERNAL MEDICAL RECORDS FROM OTHER ER VISITS WERE REVIEWED BY ME INDICATED. PRIOR TESTING AND RESULTS FROM PREVIOUS VISITS WERE REVIEWED. PRIOR TESTS WERE TAKEN INTO ACCOUNT WITH MEDICAL DECISION MAKING AND RESOURCE UTILIZATION, INDEPENDENT HISTORIAN/HISTORIANS WERE USED TO OBTAIN COMPLETE MEDICAL HISTORY. I INDEPENDENTLY INTERPRETED THE TEST THAT WERE PERFORMED, RESULTS WERE REVIEWED BY ME AND CONSIDERED FINDINGS ON RADIOLOGY IF ORDERED. MEDICAL MANAGEMENT AND EXAMINATION INTERPRETATION DISCUSSIONS WERE HAD BY ME WITH OTHER QUALIFIED HEALTHCARE PROFESSIONALS INDICATED FOR THE PATIENT'S CARE. DX & DISP Disposition: Discharge Departure Impression: Primary Impression: DVT (deep venous thrombosis) Additional Impression: Hypokalemia Condition: Stable Scripts Acetaminophen with Codeine (Acetaminophen-Cod #3 Tablet) 300 Mg-30 Mg Tablet 1 TAB PO Q4H PRN for MODERATE TO SEVERE PAIN, #10 TAB 0 Refills Prov: TATE [facility]ERNSP 04/11/25 Apixaban (Eliquis) 5 Mg Tablet 2 TAB PO BID, #60 TAB 0 Refills TAKE 10 MG BY MOUTH TWICE A DAY FOR SEVEN DAYS, THEN5 MG TWICE A DAY. Prov: TATE KERNSP 04/11/25 Additional Instructions: Follow-up with primary care provider in 1 to 2 days. Take medications as directed here in the emergency room. Okay to continue home medications unless otherwise discussed during your visit in the emergency room today. Return to your nearest emergency room if symptoms worsen or if there is no improvement. Call 911 if you need immediate assistance. Take Tylenol or Motrin [id number] ter as needed and if no contraindications are present. Increase oral hydration. A wound culture or urine culture was ordered here in the emergency room department please follow-up with primary care provider and advise them to get repeat ports from our facility. If you had any Nav wrap/splints that were applied here, please do not remove them until you see your primary care or sp ecialty. Take Eliquis 10 mg twice a day for the 1st seven days, then5 mg twice a day. Take Tylenol with the codeine for severe pain See your primary care doctor on Monday or Monday for management of your right leg deep vein thrombosis. Referrals: DIANA KHAN MD (PCP) Time of Disposition: 14:49 I have reviewed the case, and I agree with, Diagnosis and Plan TATE KERNS MARINE ENGINEERING PROFESSOR Apr 11, 2025 12:28
[2025-04-11 12:44] LABS: IMMATURE GRANULOCYTE ABSOLUTE 0.02 K/uL (0-1); NUCLEATED RED BLOOD CELLS 0.0 % (0.0-0.19); PLATELET COUNT (AUTO) 447 K/uL (130-400); RED BLOOD CELL COUNT(AUTO) 4.36 MIL/uL (4.00-5.50); RED CELL DISTRIBUTION WIDTH 15.0 % (11.0-15.5); WHITE BLOOD COUNT (AUTO) 7.6 K/uL (4.8-10.8)
[2025-04-11 12:54] LABS: CREATININE 0.8 mg/dL (0.5-1.0); GLOMERULAR FILTR. RATE CALC 78.0 mL/min (>90); GLUCOSE,RANDOM 117.0 mg/dL (70-105); SODIUM SERUM 141.0 mmol/L (136-145); UREA NITROGEN, BLOOD 8.0 mg/dL (7-18)
[2025-04-11] MEDS ORDERED: ACET-2079 PO (14:52)
[2025-04-11] MEDS ORDERED: APIX5TAB PO (14:52)
[2025-04-11 15:04] VITALS: BP 110/59; PULSE 89; RESP 20; TEMP 98.2; O2SAT 99
--- NOTE | 2025-04-16 11:52 | HMCIMG ---
EXAM: US for Deep Venous Thrombosis, right Lower Extremity. CLINICAL HISTORY: Leg Pain and Swelling TECHNIQUE: Real-time ultrasound scan of the veins of the right lower extremity with color Doppler flow, spectral waveform analysis and compression. COMPARISON: None provided. FINDINGS: DEEP VEINS: The common femoral vein is partially compressible, and partial flow is suggestive of partial thrombosis. The superficial femoral and popliteal veins are echolucent and compressible. There is normal color Doppler flow throughout. The visualized calf veins appear patent. SOFT TISSUES: No popliteal fossa cyst or other abnormalities. IMPRESSION: 1. Partial thrombosis of the right common femoral vein. /Gavin
== END 2025-04-11 15:07 | disposition home or self-care (01) ==
LOC: EDH 12:17
DX: I82.411 Acute embolism and thrombosis of right femoral vein (principal); E78.00 Pure hypercholesterolemia, unspecified; I10 Essential (primary) hypertension; J45.909 Unspecified asthma, uncomplicated; E87.6 Hypokalemia; Z88.8 Allergy status to other drugs, medicaments and biological substances; Z88.0 Allergy status to penicillin; Z79.899 Other long term (current) drug therapy; Z79.01 Long term (current) use of anticoagulants; Z90.49 Acquired absence of other specified parts of digestive tract; Z90.710 Acquired absence of both cervix and uterus
CPT/HCPCS: 36415; 80048; 85025; 93971; 99284